=== PATIENT | male | born 1990 | race African-American/Black ===

== ENCOUNTER 2022-05-16 16:32 | Emergency (ER) | payer OTHER ==
[2022-05-16 16:58] LABS: Bilirubin Neg (Negative); Blood, Urine Negative (Negative); Clarity Clear (Clear); Glucose, Urine (Dipstick) Normal (Negative); Ketone, Urine Negative (Negative); Leukocyte Negative (Negative); Nitrite Negative (Negative); Protein, Urine (Dipstick) Negative (Neg-Trace)
[2022-05-16] MEDS ORDERED: Azithromycin 250 MG TAB ONE (18:57)
[2022-05-16] MEDS ORDERED: cefTRIAXone\\ROCEPHIN 500 MG VIAL ONE (18:58)
[2022-05-17 12:37] LABS: Chlam.trachomatis by PCR,Urine Not Detected (NotDetected)
== END 2022-05-16 19:21 | disposition home or self-care (01) ==
LOC: CSHERS 16:32
DX: Z11.3 Encounter for screening for infections with a predominantly sexual mode of transmission (principal); F17.200 Nicotine dependence, unspecified, uncomplicated
CPT/HCPCS: 81003; 87491; 87591; 96372; 99283; J0696